=== PATIENT | female | born 1990 | race Caucasian/White ===

== ENCOUNTER 2023-03-27 07:37 | Inpatient (IN) ==
--- NOTE | 2023-03-27 07:51 | History & Physical Report ---
Date of Service March 27, 2023 Assessment & Plan (1) Gestational diabetes: (2) Encounter for induction of labor: (3) Obesity affecting : Plan Will admit patient to L&d for induction of labor. Patient comfortable. VSS. Frances balloon placed yesterday, and fell out yesterday. Fetus category 1 Pit as needed Epidural prn Patient in agreement. Admission and Anticipated Discharge Date Admission Date: March 27, 2023 History of Present Illness Chief Complaint: induction of labor Primary Care Provider: Ashlyn Torres MD Alba is a 33 y/o female currently at IUP 40 3/7 WGA with an NIDIA 03/24/23 as determined by certain LMP who is here for IOL due to diet-controlled GDM and post-dates. Frances balloon placed yesterday and fell out yesterday. (+) movement (-) contractions (-) fluid loss (-) bloody show External FHT and external uterine monitors used * Category 1 tracing * Moderate FHT variability. Had regular appointments since 1st trimester. OB Labs: Blood Type A Positive 08/21/22 Antibody Screen NEGATIVE 08/21/22 Hemoglobin 11.6 g/dl (12.0-16.0) L 01/04/23 Hematocrit 33.8 % (37.0-47.0) L 01/04/23 Mean Corpuscular Volume 81.4 fL (80.0-100.0) 08/21/22 Platelet Count 384 K/uL (130-400) 08/21/22 Rubella IgG Antibody Immune (Immune) 08/21/22 Rapid Plasma Reagin Nonreactive (Nonreactive) 08/21/22 Hepatitis B Surface Antigen. NON-REACTIVE (NON-REACTIVE) 08/21/22 Hepatitis C Antibody Neg (Neg) 06/10/20 Hepatitis C Antibody (EIA) NON-REACTIVE (NON-REACTIVE) 08/21/22 HIV (1&2) Ag and Ab Confirmation NON-REACTIVE (NON-REACTIVE) 08/21/22 Glucose 1 Hour 50 gm Load 134 mg/dl (70-130) H 01/04/23 OB Optional Labs: Chlamydia trachomatis RNA Not Detected (NotDetected) 08/21/22 Neisseria gonorrhoeae RNA Not Detected (NotDetected) 08/21/22 Thyroid Stimulating Hormone (TSH) 2.672 uIu/ml (0.300-4.500) 07/21/21 Labs Reviewed: Declines cf/sma cfdna-low risk declines qs/afp Allergies Allergy/AdvReac Type Severity Reaction Status Date / Time No Known Allergies Allergy Verified 03/26/23 13:33 Home Medications Medication Instructions Recorded Confirmed Type cholecalciferol (vitamin D3) PO 05/06/19 03/26/23 History Saccharomyces boulardii 250 mg 250 mg PO BID 02/22/21 03/26/23 History capsule (Daily Probiotic (S. boulardii)) vitamin#30 30 mg iron-10 cap PO 08/01/22 03/26/23 History mg iron-folic acid 1 mg-omg3 capsule docusate sodium [Stool Softener] PO 01/04/23 03/26/23 History blood sugar diagnostic (OneTouch #150 ea 02/15/23 03/26/23 Rx Verio test strips) lancets 33 gauge (OneTouch Delica #150 ea 02/15/23 03/26/23 Rx Plus Lancet) ferrous sulfate 325 mg (65 mg 325 mg PO DAILY 03/27/23 03/27/23 History iron) tablet (Iron (ferrous sulfate)) Patient History Medical History Thyroiditis Varicella Surgical History H/O wisdom tooth extraction Family History Grandfather Prostate cancer Lung cancer Aunt Pancreatic cancer Mother Seizures Denies family history of Ovarian cancer Myocardial infarction Breast cancer Colorectal cancer Uterine cancer Social History (Updated 08/17/22 @ 10:04 by Brittany Huston, MATHEUS) Smoking Status: Never smoker Second Hand Exposure: No; Do You Dip or Chew Tobacco: No; Hx Alcohol Use: No Hx Substance Use: No Preferred Language: Martiniquais Visual Impairment: No Limitations Hearing Ability: Normal Revival Clerk Required: No Beliefs That Will Affect Care: None marital status: marital status details: Dom Wright (33) [phone] Current Living Situation: Spouse Current Living Situation Comment: lives with spouse, no pets current occupational status: employed 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 Denies shortness of breath or respiratory difficulty. no chest pain and no palpitations no dysuria no headache(s) Physical Exam Physical Exam: General: Alert, oriented x3. Afebrile. No acute distress. Eyes: Pupils equal and reactive to light bilaterally. Extraocular movement intact bilaterally. Cardiac: Regular rate and rhythm, no murmurs/rubs/gallops. Respiratory: Clear to auscultation bilaterally a/p, no wheezes/rales/rhonchi. No increased work of breathing. Symmetrical chest rise. No respiratory distress. Abdomen: Gravid; FHR baseline 135-140; Position: Cephalic Pelvic: 4 / 70 / -[address] Wooten Lower Extremities: No lower extremity edema or swelling. No deep calf pain. Reina's negative bilaterally Genitourinary: OB Exam Abdomen: + vertex, + estimated weight (7-8 pounds) and + irregular contractions OB Exam Monitor Tracing: + external FHT monitor used, + external uterine monitor used, + category I and + normal FHT variability Supervising Physician Co-Signing Physician Notes Resident Physician Supervision Note: I was present with Dr. Siddiqi during the history and exam. I discussed the case with the resident and agree with the findings and plan as documented in the note. Any exceptions or clarifications are listed here: [None] Documented By: Stacy Richter MD, FACOG Resident Activity Tracking Resident Involvement: Resident Care Provided Care Provided: OB Delivery (1) Gestational diabetes Gestational diabetes mellitus control: diet-controlled Trimester: third trimester Qualified Code(s): O24.410 - Gestational diabetes mellitus in , diet controlled (3) Obesity affecting Obesity type affecting : unspecified obesity Trimester: third trimester Qualified Code(s): O99.213 - Obesity complicating , third trimester
[2023-03-27] MEDS ORDERED: LIDOCAINE 1% LOCAL 20 ML VIAL INFIL PRN (07:52)
[2023-03-27] MEDS ORDERED: OXYTOCIN 30 UNITS/500 ML BAG IV PRN ×2 (07:52→09:26)
[2023-03-27 09:00] LABS: Hematocrit (blood only) 35.1 % (37.0-47.0); Hemoglobin 12.5 g/dl (12.0-16.0); Mean Corpuscular Hemoglobin 28.6 pg (25.0-34.0); Mean Corpuscular Hgb Conc 35.6 g/dL (32.0-36.0); Mean Corpuscular Volume 80.3 fL (80.0-100.0); Mean Platelet Volume 10.4 fL (9.4-12.4); Platelet Count 246 K/uL (130-400); RDW Coefficient of Variation 14.1 % (11.5-14.5); RDW Standard Deviation 41.8 fL (36.4-46.3); Red Blood Count 4.37 M/uL (4.20-5.40); White Blood Count 9.77 K/ul (4.8-10.8)
[2023-03-27] MEDS: LACTATED RINGER'S 1,000 ML IV PRN ×3 (09:35→18:55)
[2023-03-27] MEDS ORDERED: fentaNYL citrate PF 100 MCG/2 ML VIAL ONE (11:18)
[2023-03-27] MEDS ORDERED: ePHEDrine sulfate 50 MG/ML AMP ONE (11:18)
[2023-03-27] MEDS ORDERED: LIDOCAINE 2%/EPINEPHRINE 1:200,000 20 ML PF ONE (11:19)
[2023-03-27] MEDS ORDERED: BUPIVACAINE 0.25% PF 30 ML VIAL ONE (11:19)
[2023-03-27] MEDS ORDERED: SODIUM CHLORIDE 0.9% PF INJ 10 ML VIAL ONE (11:19)
[2023-03-27] MEDS ORDERED: fentANYL 2 MCG/ML BUPIVacaine 0.125%-NSS 100ML BAG ONE (11:19)
--- NOTE | 2023-03-27 12:35 | Anesthesiology Consultation ---
Date of Service March 27, 2023 Assessment & Plan Chart Review Chart Review: Acceptable Risk for Labor Epidural Consults Requested none History Height/Weight Height: 5 ft 4 in Weight: 122.924 kg Allergies Allergy/AdvReac Type Severity Reaction Status Date / Time No Known Allergies Allergy Verified 03/26/23 13:33 Medications Home Medications Medication Instructions Recorded Confirmed Last Taken cholecalciferol (vitamin D3) PO 05/06/19 03/26/23 03/27/23 Saccharomyces boulardii 250 mg 250 mg PO BID 02/22/21 03/26/23 03/26/23 21:00 capsule (Daily Probiotic (S. boulardii)) vitamin#30 30 mg iron-10 cap PO 08/01/22 03/26/23 03/26/23 21:00 mg iron-folic acid 1 mg-omg3 capsule docusate sodium [Stool Softener] PO 01/04/23 03/26/23 Unknown blood sugar diagnostic (OneTouch #150 ea 02/15/23 03/26/23 Unknown Verio test strips) lancets 33 gauge (OneTouch Delica #150 ea 02/15/23 03/26/23 Unknown Plus Lancet) ferrous sulfate 325 mg (65 mg 325 mg PO DAILY 03/27/23 03/27/23 03/26/23 21:00 iron) tablet (Iron (ferrous sulfate)) Active Medications Generic Name Dose Route Start Last Admin Trade Name Freq PRN Reason Stop Dose Admin Lactated Ringer's 1,000 mls @ 125 mls/hr 03/27/23 07:52 03/27/23 11:45 Lr IV 03/29/23 07:51 125 mls/hr .Q8H PRN Infusion L&D Protocol Protocol Oxytocin 30 units in 500 mls @ 10 mls/hr 03/27/23 09:26 03/27/23 12:33 Pitocin IV 03/29/23 09:25 0.6 units/hr .Q24H PRN 10 mls/hr Labor Induction/Augmentation Titration Protocol 0.6 UNITS/HR Past Medical History Medical History Thyroiditis Varicella Past Family History Family History Grandfather Prostate cancer Lung cancer Aunt Pancreatic cancer Mother Seizures Denies family history of Ovarian cancer Myocardial infarction Breast cancer Colorectal cancer Uterine cancer Past Surgical History Surgical History H/O wisdom tooth extraction Social History Smoking Status: Never smoker Do You Dip or Chew Tobacco: No Hx Alcohol Use: No Hx Substance Use: No Physical Exam Vital Signs Last Vital Signs Temp 36.5 C 03/27/23 11:40 Pulse 87 03/27/23 12:33 Resp 18 03/27/23 11:40 BP 132/58 L 03/27/23 12:33 Pulse Ox 99 03/27/23 12:33 Testing Laboratory Results 03/27/23 08:34 03/27/23 09:27 POC Glucose 84
[2023-03-27] MEDS ORDERED: NALOXONE HCL 0.4 MG/1 ML VIAL/CARP IV PRN (12:37)
[2023-03-27] MEDS ORDERED: BUPIVACAINE 0.25% PF 30 ML VIAL EPI STA (12:37)
[2023-03-27] MEDS ORDERED: SODIUM CHLORIDE 0.9% PF INJ 10 ML VIAL EPI STA (12:37)
[2023-03-27] MEDS ORDERED: BUPIVACAINE 0.25% PF 30 ML VIAL EPI PRN (12:37)
[2023-03-27] MEDS ORDERED: ROPIVACAINE 0.5% PF 5 MG/ML 20 ML VIAL EPI PRN (12:37)
[2023-03-27] MEDS ORDERED: fentaNYL citrate PF 100 MCG/2 ML VIAL EPI STA (12:37)
[2023-03-27] MEDS ORDERED: NALOXONE HCL 1 MG in SODIUM CHLORIDE 0.9% 1,000 ML IV PRN (12:37)
[2023-03-27] MEDS ORDERED: diphenhydrAMINE 50 MG/ML VIAL IV PRN (12:37)
[2023-03-27] MEDS ORDERED: ePHEDrine sulfate 50 MG/ML AMP IV PRN (12:37)
[2023-03-27] MEDS ORDERED: NALBUPHINE HCL 5 MG in SYRINGE 0 ML IV PRN (12:37)
[2023-03-27] MEDS ORDERED: SODIUM CHLORIDE 0.9% PF INJ 10 ML VIAL EPI PRN (12:37)
[2023-03-27] MEDS ORDERED: LIDOCAINE 2%/EPINEPHRINE 1:200,000 20 ML PF EPI STA (12:37)
[2023-03-27] MEDS ORDERED: fentaNYL citrate PF 100 MCG/2 ML VIAL EPI PRN (12:37)
[2023-03-27] MEDS ORDERED: LIDOCAINE 2% MPF LOCAL 5 ML VIAL EPI PRN (12:37)
[2023-03-27] MEDS ORDERED: fentANYL 2 MCG/ML BUPIVacaine 0.125%-NSS 100ML BAG EPI PRN (12:37)
[2023-03-28] MEDS ORDERED: OXYTOCIN 30 UNITS/500 ML BAG IV PRN (00:33)
[2023-03-28] MEDS ORDERED: BENZOCAINE 20% SPRY 85 APPLN/85 GM CAN EXT PRN (00:33)
[2023-03-28] MEDS ORDERED: DIPHTHERIA/TETANUS/PERTUSSIS Vaccine (Tdap, Age 7+yrs) 0.5mL SYR/VL IM ONE (00:33)
[2023-03-28] MEDS ORDERED: HYDROCORTISONE ACETATE 25 MG SUPP PR PRN (00:33)
[2023-03-28] MEDS ORDERED: ACETAMINOPHEN 325 MG TAB PO PRN (00:33)
[2023-03-28] MEDS ORDERED: oxyCODONE/ACETAMINOPHEN 5mg/325mg TAB PO PRN (00:33)
--- NOTE | 2023-03-28 00:50 | Delivery Summary ---
Vaginal Delivery Summary Date of Service March 28, 2023 Vaginal Delivery Summary and 1st Degree LAC Patient is a 33-year-old 1 P0 female EDC of 03/24/2023 who presented for postterm induction of labor. Her induction was begun with a cervical balloon followed by Pitocin augmentation. Membranes were ruptured for clear fluid and she received effective epidural analgesia. She progressed to full dilation and pushed effectively over intact perineum for delivery of a viable female . After the head delivered the rest the followed quickly. She was placed on mother's abdomen for further attention and drying. After 1 minute the cord was clamped and cut. After cord blood was obtained, after intermittent gentle traction on the umbilical cord, the cord avulsed. Placenta was noted to be in the cervix. It was grasped and easily delivered intact with a three-vessel cord. bleeding was controlled with fundal massage and dilute Pitocin. A first-degree vaginal laceration was repaired with 3-0 chromic in the usual fashion. Estimated blood loss was 400 cc. Mother and were doing well after [place] [facility] [place] Delivery Type Details: and 1st Degree LAC
--- NOTE | 2023-03-28 02:43 | Anesthesia Procedure Note ---
Date of Service March 28, 2023 Anesthesia Post Epidural Note Vital Signs Vital Signs: Temp Pulse Resp BP Pulse Ox 36.9 C 97 H 18 150/66 H 97 03/28/23 00:30 03/28/23 02:32 03/28/23 00:30 03/28/23 02:32 03/28/23 00:08 Pain Intensity Medial Abdomen: Pain Intensity: 3 Notes Mental Status: alert / awake / arousable Nausea / Vomiting: adequately controlled Pain: adequately controlled Airway Patency, RR, SpO2: stable & adequate BP & HR: stable & adequate Hydration State: stable & adequate Neuraxial Anesthesia: was administered and sensory block is resolving Anesthetic Complications: no major complications apparent and Pt Satisfied with anesthetic care Epidural: Removed without complications and With tip intact
[2023-03-28] MEDS: IBUPROFEN 600 MG TAB PO PRN ×3 (03:22→21:00)
--- NOTE | 2023-03-28 06:47 | Obstetrical Progress Note ---
Date of Service <Trudy Siddiqi MD - Last Filed: 03/28/23 07:20> March 28, 2023 Assessment & Plan <Trudy Siddiqi MD - Last Filed: 03/28/23 07:20> (1) Encounter for assessment: Plan Patient with the above mentioned history and findings was evaluated at bedside and found awake, alert, oriented in all spheres, afebrile, and in no acute distress. Vital signs showed no fever and blood pressures remained stable Her blood type is A pos and most recent hemoglobin is adequate at 12.5 g/dL. She is GBS negative and rubella immune. Overall, patient is doing well clinically. Will continue routine pp care. All questions were answered. <Stacy Richter MD, FACOG - Last Filed: 03/28/23 07:25> (1) Encounter for assessment: Subjective <Trudy Siddiqi MD - Last Filed: 03/28/23 07:20> Alba is a 33 y/o female who is now PPD # 1 following at 40 3/7. Reports feeling well overall this morning. Refers mild abdominal cramping & 3/10 pain well managed on analgesics. Voiding spontaneously. Tolerating meals overnight and able to ambulate some. Passing flatus but no bowel movements yet. Some persistent lochia with some improvement this morning. . Constitutional: no fever, no chills or no sweats Denies shortness of breath or difficulty breathing Cardiovascular: no chest pain or no palpitations Breast: no breast pain Genitourinary (female): no dysuria Neurologic: no headache(s) Denies changes in vision Physical Exam <Trudy Siddiqi MD - Last Filed: 03/28/23 07:20> General: Alert. Oriented to person, time, and place. Afebrile. No acute distress. Eyes: pupils equal and reactive to light bilaterally, extraocular movements intact. Cardiac: Regular rate and rhythm, no murmurs/rubs/gallops. Respiratory: Clear to auscultation bilaterally. No increased work of breathing. Symmetrical chest rise. No respiratory distress. Abdomen: Soft, nontender, nondistended. Bowel sounds present. Uterus: Uterine fundus firm, mildly tender, and palpable below umbilicus. Lower Extremities: No lower extremity edema or swelling. No deep calf pain. Reina's negative bilaterally. Psych: Euthymic affect. Mood and affect congruence. Regular speech rate and content. Results & Data <Trudy Siddiqi MD - Last Filed: 03/28/23 07:20> Vital Signs (Past 12 Hours) Vital Signs Temp Pulse Pulse Resp BP BP Pulse Ox 03/28/23 03:04 36.9 C 104 H 18 137/81 97 03/28/23 02:32 97 H 150/66 H 03/28/23 02:15 98 H 129/68 03/28/23 02:00 104 H 130/62 03/28/23 01:45 98 H 121/57 L 03/28/23 01:31 91 H 147/67 H 03/28/23 01:15 89 141/77 H 03/28/23 01:00 95 H 118/56 L 03/28/23 00:45 101 H 124/58 L 03/28/23 00:30 36.9 C 18 03/28/23 00:30 113 H 138/73 03/28/23 00:08 128 H 97 03/28/23 00:03 111 H 97 03/27/23 23:58 114 H 97 03/27/23 23:53 122 H 98 03/27/23 23:48 145 H 98 03/27/23 23:43 133 H 98 03/27/23 23:40 127 H 91 03/27/23 23:38 123 H 98 03/27/23 23:33 154 H 98 03/27/23 23:30 18 03/27/23 23:30 18 03/27/23 23:28 136 H 99 03/27/23 23:23 131 H 99 03/27/23 23:18 137 H 100 03/27/23 23:17 120 H 136/85 03/27/23 23:13 108 H 99 03/27/23 23:08 108 H 99 03/27/23 23:03 105 H 99 03/27/23 23:02 103 H 140/71 03/27/23 23:00 18 03/27/23 23:00 36.8 C 18 03/27/23 22:58 106 H 98 03/27/23 22:53 103 H 98 03/27/23 22:48 104 H 99 03/27/23 22:46 99 H 153/76 H 03/27/23 22:43 105 H 98 11/07/23 22:38 95 H 99 03/27/23 22:33 103 H 97 03/27/23 22:32 89 146/74 H 03/27/23 22:30 18 03/27/23 22:30 18 03/27/23 22:28 93 H 97 03/27/23 22:23 100 H 97 03/27/23 22:18 102 H 96 03/27/23 22:13 98 H 98 03/27/23 22:08 87 98 03/27/23 22:03 107 H 99 03/27/23 22:02 96 H 123/58 L 03/27/23 22:00 18 03/27/23 22:00 18 03/27/23 21:58 102 H 99 03/27/23 21:53 88 99 03/27/23 21:48 95 H 97 03/27/23 21:46 91 H 125/59 L 03/27/23 21:43 92 H 98 03/27/23 21:38 103 H 98 03/27/23 21:33 104 H 98 03/27/23 21:31 93 H 124/60 03/27/23 21:30 18 03/27/23 21:30 18 03/27/23 21:28 94 H 98 03/27/23 21:23 102 H 99 03/27/23 21:18 91 H 98 03/27/23 21:17 90 134/60 03/27/23 21:13 108 H 99 03/27/23 21:08 106 H 99 03/27/23 21:03 92 H 99 03/27/23 21:02 36.8 C 90 128/61 03/27/23 21:00 18 03/27/23 21:00 18 03/27/23 20:58 91 H 99 03/27/23 20:53 91 H 99 03/27/23 20:48 94 H 100 03/27/23 20:47 96 H 125/71 03/27/23 20:43 91 H 99 03/27/23 20:38 89 99 03/27/23 20:33 94 H 99 03/27/23 20:32 90 125/58 L 03/27/23 20:28 91 H 99 03/27/23 20:23 92 H 98 03/27/23 20:18 96 H 99 03/27/23 20:16 107 H 127/72 03/27/23 20:13 103 H 99 03/27/23 20:08 109 H 98 03/27/23 20:03 87 99 03/27/23 20:01 89 126/68 03/27/23 20:00 18 03/27/23 20:00 18 03/27/23 19:58 91 H 100 03/27/23 19:53 99 H 100 03/27/23 19:48 82 99 03/27/23 19:46 86 123/58 L 03/27/23 19:43 92 H 100 03/27/23 19:38 85 99 03/27/23 19:33 79 99 03/27/23 19:31 85 126/59 L 03/27/23 19:30 18 03/27/23 19:30 18 03/27/23 19:28 86 100 03/27/23 19:23 84 100 03/27/23 19:18 92 H 99 03/27/23 19:16 36.9 C 85 18 125/56 L 03/27/23 19:13 89 99 03/27/23 19:08 93 H 99 03/27/23 19:03 90 100 03/27/23 19:01 90 124/57 L 03/27/23 18:58 94 H 99 03/27/23 18:53 91 H 99 03/27/23 18:48 92 H 99 03/27/23 18:47 81 127/60 O2 Del Method 03/28/23 03:04 Room Air 03/28/23 02:32 03/28/23 02:15 03/28/23 02:00 03/28/23 01:45 03/28/23 01:31 03/28/23 01:15 03/28/23 01:00 03/28/23 00:45 03/28/23 00:30 03/28/23 00:30 03/28/23 00:08 03/28/23 00:03 03/27/23 23:58 03/27/23 23:53 03/27/23 23:48 03/27/23 23:43 03/27/23 23:40 03/27/23 23:38 03/27/23 23:33 03/27/23 23:30 03/27/23 23:30 03/27/23 23:28 03/27/23 23:23 03/27/23 23:18 03/27/23 23:17 03/27/23 23:13 03/27/23 23:08 03/27/23 23:03 03/27/23 23:02 03/27/23 23:00 03/27/23 23:00 03/27/23 22:58 03/27/23 22:53 03/27/23 22:48 03/27/23 22:46 03/27/23 22:43 03/27/23 22:38 03/27/23 22:33 03/27/23 22:32 03/27/23 22:30 03/27/23 22:30 03/27/23 22:28 03/27/23 22:23 03/27/23 22:18 03/27/23 22:13 03/27/23 22:08 03/27/23 22:03 03/27/23 22:02 03/27/23 22:00 03/27/23 22:00 03/27/23 21:58 03/27/23 21:53 03/27/23 21:48 03/27/23 21:46 03/27/23 21:43 03/27/23 21:38 03/27/23 21:33 03/27/23 21:31 03/27/23 21:30 03/27/23 21:30 03/27/23 21:28 03/27/23 21:23 03/27/23 21:18 03/27/23 21:17 03/27/23 21:13 03/27/23 21:08 03/27/23 21:03 03/27/23 21:02 03/27/23 21:00 03/27/23 21:00 03/27/23 20:58 03/27/23 20:53 03/27/23 20:48 03/27/23 20:47 03/27/23 20:43 03/27/23 20:38 03/27/23 20:33 03/27/23 20:32 03/27/23 20:28 03/27/23 20:23 03/27/23 20:18 03/27/23 20:16 03/27/23 20:13 03/27/23 20:08 03/27/23 20:03 03/27/23 20:01 03/27/23 20:00 03/27/23 20:00 03/27/23 19:58 03/27/23 19:53 03/27/23 19:48 03/27/23 19:46 03/27/23 19:43 03/27/23 19:38 03/27/23 19:33 03/27/23 19:31 03/27/23 19:30 03/27/23 19:30 03/27/23 19:28 03/27/23 19:23 03/27/23 19:18 03/27/23 19:16 03/27/23 19:13 03/27/23 19:08 03/27/23 19:03 03/27/23 19:01 03/27/23 18:58 03/27/23 18:53 03/27/23 18:48 03/27/23 18:47 Supervising Physician <Stacy Richter MD, FACOG - Last Filed: 03/28/23 07:25> Co-Signing Physician Notes Resident Physician Supervision Note: I interviewed and examined the patient. Discussed with Dr. Siddiqi and agree with findings and plan as documented in the note. Any exceptions or clarifications are listed here: [None] Documented By: Stacy Richter MD, FACOG Resident Activity Tracking <Trudy Siddiqi MD - Last Filed: 03/28/23 07:20> Resident Involvement: Resident Care Provided Care Provided: OB Delivery
[2023-03-28] MEDS: PRENATAL VITAMIN 1 TAB PO SCH (07:27)
[2023-03-28] MEDS: DOCUSATE SODIUM 100 MG CAP PO SCH ×2 (07:28→21:00)
--- NOTE | 2023-03-29 05:49 | Obstetrical Progress Note ---
Date of Service <Trudy Siddiqi MD - Last Filed: 03/29/23 07:01> March 29, 2023 Assessment & Plan <Trudy Siddiqi MD - Last Filed: 03/29/23 07:01> (1) Encounter for assessment: Plan Patient with the above mentioned history and findings was evaluated at bedside and found awake, alert, oriented in all spheres, afebrile, and in no acute distress. Vital signs showed no fever and blood pressures remained stable Her blood type is A pos and most recent hemoglobin is adequate at 12.5 g/dL. She is GBS negative and rubella immune. Overall, patient is doing well clinically and meeting all the desired milestones. Due to some scattered elevated BP readings since coming to pp [facility], will order labs and evaluate. If they are wnl, will discharge today with appointment in OB office next week for BP check. Patient counseled to schedule a follow up appointment with the OB office in 6 weeks for her routine pp evaluation. Discharge instructions discussed. All questions were answered. <Cady Rubin MD - Last Filed: 03/29/23 08:04> (1) Encounter for assessment: Subjective <Trudy Siddiqi MD - Last Filed: 03/29/23 07:01> Alba is a 33 y/o female who is now PPD # 2 following at 40 3/7. Reports feeling well overall this morning. Refers mild abdominal cramping & 2/10 pain well managed on analgesics. Voiding spontaneously. Tolerating meals overnight and able to ambulate some. Passing flatus but no bowel movements yet. Some persistent lochia with some improvement this morning. . Constitutional: no fever, no chills or no sweats Denies shortness of breath or difficulty breathing Cardiovascular: no chest pain or no palpitations Breast: no breast pain Genitourinary (female): no dysuria Neurologic: no headache(s) Denies changes in vision Physical Exam <Trudy Siddiqi MD - Last Filed: 03/29/23 07:01> General: Alert. Oriented to person, time, and place. Afebrile. No acute distress. Eyes: pupils equal and reactive to light bilaterally, extraocular movements intact. Cardiac: Regular rate and rhythm, no murmurs/rubs/gallops. Respiratory: Clear to auscultation bilaterally. No increased work of breathing. Symmetrical chest rise. No respiratory distress. Abdomen: Soft, nontender, nondistended. Bowel sounds present. Uterus: Uterine fundus firm, non-tender, and palpable below umbilicus. Lower Extremities: Mild bilateral lower extremity swelling. No deep calf pain. Reina's negative bilaterally. Psych: Euthymic affect. Mood and affect congruence. Regular speech rate and content. Results & Data <Trudy Siddiqi MD - Last Filed: 03/29/23 07:01> Vital Signs (Past 12 Hours) Vital Signs Temp Pulse Resp BP Pulse Ox O2 Del Method 03/28/23 23:30 36.7 C 79 18 119/69 99 Room Air 03/28/23 19:30 36.8 C 88 18 140/75 99 Room Air Supervising Physician <Cady Rubin MD - Last Filed: 03/29/23 08:04> Co-Signing Physician Notes Resident Physician Supervision Note: I interviewed and examined the patient. Discussed with Dr. Siddiqi and agree with findings and plan as documented in the note. Any exceptions or clarifications are listed here: PP1 s/p , doing well. Few mild BPs since delivery, cbc and cmp wnl today so ok to dc. Will have BP check in 1 wk Documented By: Cady Rubin MD Resident Activity Tracking <Trudy Siddiqi MD - Last Filed: 03/29/23 07:01> Resident Involvement: Resident Care Provided Care Provided: OB Delivery
[2023-03-29 06:18] LABS: Hematocrit (blood only) 32.5 % (37.0-47.0); Mean Corpuscular Hemoglobin 28.4 pg (25.0-34.0); Mean Corpuscular Hgb Conc 33.8 g/dL (32.0-36.0); Mean Corpuscular Volume 83.8 fL (80.0-100.0); Mean Platelet Volume 10.1 fL (9.4-12.4); Platelet Count 214 K/uL (130-400); RDW Coefficient of Variation 14.5 % (11.5-14.5); RDW Standard Deviation 44.2 fL (36.4-46.3); Red Blood Count 3.88 M/uL (4.20-5.40); White Blood Count 11.84 K/ul (4.8-10.8)
[2023-03-29 07:53] LABS: Albumin Globulin Ratio 1.2 (0.9-2); Albumin Level 3.3 gm/dl (3.4-5.0); BUN Creatinine Ratio 15.7 (10-20); Bilirubin,Total 0.3 mg/dl (0.2-1.0); Calcium 9.2 mg/dl (8.6-10.3); Creatinine Clr Calc Pharmacy 149.3 ml/min; Est GFR (African American) 132.9 ml/min; Est GFR (Non-African American) 114.6 ml/min; Globulin 2.8 gm/dl (2.5-4.0); Potassium 4.4 mmol/L (3.5-5.1); Total Protein 6.1 gm/dl (6.0-8.3)
[2023-03-29] MEDS: PRENATAL VITAMIN 1 TAB PO SCH (08:10)
[2023-03-29] MEDS: DOCUSATE SODIUM 100 MG CAP PO SCH (08:10)
[2023-03-29] MEDS ORDERED: bisacodyL 5 MG TABEC PO SCH (20:00)
[2023-03-30] MEDS ORDERED: bisacodyL 10 MG SUPP PR PRN (00:33)
== END 2023-03-29 11:45 | disposition home or self-care (01) | DRG 807 ==
LOC: 4S1 07:37 → 4E1 03-28 03:03
DX: Z37.0 Single live birth; O99.214 Obesity complicating childbirth; O48.0 Post-term pregnancy; Z3A.40 40 weeks gestation of pregnancy; O24.420 Gestational diabetes mellitus in childbirth, diet controlled; E66.9 Obesity, unspecified; O70.0 First degree perineal laceration during delivery